=== PATIENT | female | born 1985 | race Caucasian/White ===

== ENCOUNTER → 2021-10-29 | Day surgery (SDC) | payer OTHER ==
[~2021-10-29] MED LIST: Acetaminophen 500 MG TAB ONE; Acetaminophen 500 MG TAB PO SCH; Iron Sucrose Complex 500 MG in Sodium Chloride 0.9% 250 ML 250 ML IVPB SCH
== END ==
LOC: CSHSDC/OP 12:50
PROVIDERS: ATTEND Obstetrics & Gynecology
DX: O99.019 Anemia complicating pregnancy, unspecified trimester (principal); D64.9 Anemia, unspecified
CPT/HCPCS: J1756; J7050

== ENCOUNTER 2021-11-24 06:56 | Inpatient (IN) | payer OTHER ==
[2021-11-24 07:25] VITALS: BMI 30.2
[2021-11-24] MEDS ORDERED: Ondansetron PF 4 MG/2 ML Vial IVP PRN ×3 (07:35→21:21)
[2021-11-24] MEDS ORDERED: hydrALAZINE 20 MG/ML VIAL SLOW IVP PRN ×2 (07:35→21:21)
[2021-11-24] MEDS ORDERED: Lidocaine 1% (PF) 30 ML VIAL SC PRN (07:35)
[2021-11-24] MEDS ORDERED: Promethazine HCl 25 MG/ML VIAL IM PRN ×2 (07:35→14:49)
[2021-11-24] MEDS ORDERED: NS w/ Oxytocin 30 units 500 ML IV SCH ×2 (07:45→22:00)
[2021-11-24] MEDS ORDERED: Bupivacaine/Epinephrine 0.25% 30 ML VIAL ONE (08:00)
[2021-11-24 08:09] LABS: Hemoglobin 10.8 g/dL (12.0-15.5); Mean Corpuscular HGB CONC 31.9 g/dL (32.0-36.0); Mean Corpuscular Hemoglobin 24.6 pg (27.0-33.0); Mean Corpuscular Volume 77.2 fl (81.6-98.3); Mean Platelet Volume 9.7 fl (7.4-10.4); Platelet Count 129 10x3/uL (150-450); RBC Distribution Width 18.7 % (11.5-14.5); Red Blood Cell (RBC) Count 4.39 10x6/uL (3.90-5.03); White Blood Cell (WBC) Count 13.3 10x3/uL (3.5-10.5)
[2021-11-24 12:14] LABS: Hep B Surf Ag Non-Reactive S/CO (NonReactive); Syphilis Antibody Nonreactive (Nonreactive); Syphilis Antibody Index 0.13 S/CO (<1.00 Non-Reactive)
[2021-11-24] MEDS ORDERED: Naloxone HCl 0.4 mg/ml Vial IVP PRN ×2 (14:49)
[2021-11-24] MEDS ORDERED: Moisturizing Cream (Eucerin) 113 GM JAR TOP PRN (14:49)
[2021-11-24] MEDS ORDERED: ePHEDrine Sulfate 50 MG/10 ML VIAL SLOW IVP PRN (14:49)
[2021-11-24] MEDS ORDERED: Acetaminophen 325 MG TAB PO PRN (14:49)
[2021-11-24] MEDS ORDERED: diphenhydrAMINE 50 MG/ML VIAL IVP PRN (14:49)
[2021-11-24] MEDS ORDERED: Fentanyl 2 mcg/Bup 0.1% Cadd 100 ML ONE (14:53)
[2021-11-24] MEDS ORDERED: Communication Order-Pharmacy FS SCH (15:00)
[2021-11-24] MEDS ORDERED: Fentanyl 2 mcg/Bupivacaine 0.1% Cassette 100 ML EPIDURAL SCH (15:00)
[2021-11-24] MEDS ORDERED: Lactated Ringer's 500 ML IV PRN (15:14)
[2021-11-24] MEDS ORDERED: Benzocaine-Menthol 82.5 ML CAN TOP PRN (21:21)
[2021-11-24] MEDS ORDERED: diphenhydrAMINE 25 MG CAP PO PRN (21:21)
[2021-11-24] MEDS ORDERED: Boostrix 0.5 ML (Tdap) VIAL (>/=7 yrs of age) IM ONE (21:21)
[2021-11-24] MEDS ORDERED: Preparation H Ointment 28 GM TUBE PR PRN (21:21)
[2021-11-24] MEDS ORDERED: Bisacodyl 10 MG SUPP PR PRN (21:21)
[2021-11-24] MEDS ORDERED: HYDROcodone/Acetaminophen 5/325 mg Tablet PO PRN (21:21)
[2021-11-24] MEDS ORDERED: Lanolin Ointment 7 GM TUBE TOP PRN (21:21)
[2021-11-24] MEDS ORDERED: Milk Of Magnesia 30 ML UDCUP PO PRN (21:21)
[2021-11-24] MEDS ORDERED: Docusate 100 MG CAP PO SCH (22:00)
[2021-11-24] MEDS: Ibuprofen 800 MG TAB PO SCH (22:09)
[2021-11-25] MEDS: Ibuprofen 800 MG TAB PO SCH ×3 (05:21→22:12)
[2021-11-25] MEDS: Ferrous Sulfate 325 MG TAB PO SCH ×2 (08:02→16:18)
[2021-11-25] MEDS: Prenatal Vitamin 1 TAB PO SCH (08:14)
[2021-11-25] MEDS: HYDROcodone/Acetaminophen 5/325 mg Tablet PO PRN ×2 (08:15→13:22)
[2021-11-25] MEDS: Docusate 100 MG CAP PO SCH ×2 (08:15→22:12)
[2021-11-26] MEDS: Ibuprofen 800 MG TAB PO SCH (05:18)
[2021-11-26] MEDS: HYDROcodone/Acetaminophen 5/325 mg Tablet PO PRN ×3 (05:21→09:45)
[2021-11-26 07:54] VITALS: BP 99/63; TEMP 98
[2021-11-26] MEDS: Docusate 100 MG CAP PO SCH (09:45)
[2021-11-26] MEDS: Prenatal Vitamin 1 TAB PO SCH (09:45)
== END 2021-11-26 12:45 | disposition home or self-care (01) | DRG 807 ==
LOC: CSHLD/OP 06:56 → CSHLD 08:40 → CSHPED 21:00
PROVIDERS: ADMIT Obstetrics & Gynecology; ATTEND Obstetrics & Gynecology
PROC: 10E0XZZ Delivery of Products of Conception, External Approach (ICD-10-PCS; principal; 2021-11-24)
PROC: 10907ZC Drainage of Amniotic Fluid, Therapeutic from Products of Conception, Via Natural or Artificial Opening (ICD-10-PCS; 2021-11-24)
PROC: 0HQ9XZZ Repair Perineum Skin, External Approach (ICD-10-PCS; 2021-11-24)
DX: O70.0 First degree perineal laceration during delivery (principal); Z37.0 Single live birth; Z3A.40 40 weeks gestation of pregnancy
CPT/HCPCS: 36415; 51702; 85027; 86780; 86850; 86900; 86901; 87340; 99285